=== PATIENT | female | born 1955 | race Caucasian/White ===

== ENCOUNTER → 2022-04-26 | Outpatient (REF) | payer SELFPAY ==
[2022-05-01 00:07] LABS: ANTINUCLEAR ANTIBODIES DIRECT Negative (Negative); CYCLIC CITRULLINATED PEPTIDE 6 units (0-19)
== END ==
LOC: M LAB REF 17:13
PROVIDERS: ATTEND Internal Medicine
DX: M25.50 Pain in unspecified joint (principal)

== ENCOUNTER → 2022-10-01 | Outpatient (CLI) | payer MEDICARE, OTHER | LOC: M WHC 08:53 | PROVIDERS: ATTEND Internal Medicine | DX: M81.0 Age-related osteoporosis without current pathological fracture (principal) ==

== ENCOUNTER → 2022-10-25 | Outpatient (CLI) | payer MEDICARE, OTHER | LOC: M PLAIMG 12:14 | PROVIDERS: ATTEND Physician Assistant | DX: M75.31 Calcific tendinitis of right shoulder (principal) ==

== ENCOUNTER → 2022-11-22 | Outpatient (CLI) | payer MEDICARE, OTHER | LOC: M PLAIMG 13:42 | PROVIDERS: ATTEND Physician Assistant | DX: M47.896 Other spondylosis, lumbar region (principal); M51.36 Other intervertebral disc degeneration, lumbar region ==

== ENCOUNTER → 2024-01-31 | Outpatient (REF) | payer MEDICARE, OTHER, MEDICAID ==
[2024-02-03 14:31] LABS: ANA SCREEN, IFA NEGATIVE (NEGATIVE)
[2024-02-04 01:47] LABS: CYCLIC CITRULLINATED PEPTIDE < 16 UNITS (<20)
[2024-02-06 22:52] LABS: LYME TOTAL ANTIBODY CIA <= 0.90 Index (<=0.90)
== END ==
LOC: M LAB REF 16:06
PROVIDERS: ATTEND Internal Medicine
DX: M25.50 Pain in unspecified joint (principal)

== ENCOUNTER 2024-03-05 14:07 | Outpatient (RCR) | payer MEDICARE, OTHER | END 2024-03-16 | LOC: M PT 14:07 | PROVIDERS: ATTEND Orthopaedic Surgery Hand Surgery | DX: M25.511 Pain in right shoulder (principal) ==

== ENCOUNTER 2024-03-18 09:54 | Outpatient (RCR) | payer MEDICARE, OTHER | END 2024-04-16 | LOC: M PT 09:54 | PROVIDERS: ATTEND Orthopaedic Surgery Hand Surgery | DX: M25.511 Pain in right shoulder (principal) ==

== ENCOUNTER → 2024-04-30 | Outpatient (REF) | payer MEDICARE, OTHER | LOC: M LAB REF 13:18 | PROVIDERS: ATTEND Internal Medicine | DX: R31.9 Hematuria, unspecified (principal) ==

== ENCOUNTER → 2024-05-05 | Outpatient (CLI) | payer MEDICARE, OTHER | LOC: M WHC 14:30 | PROVIDERS: ATTEND Internal Medicine | DX: D48.61 Neoplasm of uncertain behavior of right breast (principal); Z12.31 Encounter for screening mammogram for malignant neoplasm of breast | CPT/HCPCS: 76642; 77066; G0279 ==

== ENCOUNTER → 2024-05-19 | Outpatient (REF) | payer MEDICARE, OTHER | LOC: M LAB REF 11:55 | PROVIDERS: ATTEND Internal Medicine | DX: R31.9 Hematuria, unspecified (principal); R82.89 Other abnormal findings on cytological and histological examination of urine ==

== ENCOUNTER → 2024-12-22 | Outpatient (CLI) | payer MEDICARE, OTHER | LOC: M RAD 16:23 | PROVIDERS: ATTEND Nurse Practitioner Family | DX: R31.9 Hematuria, unspecified (principal); R10.9 Unspecified abdominal pain ==

== ENCOUNTER → 2024-12-31 | Outpatient (REF) | payer MEDICARE, OTHER | LOC: M LAB REF 17:07 | PROVIDERS: ATTEND Nurse Practitioner Family | DX: R31.9 Hematuria, unspecified (principal) ==

== ENCOUNTER → 2025-01-04 | Outpatient (REF) | payer MEDICARE, OTHER ==
[2025-01-04 17:47] LABS: APPEARANCE, URINE CLEAR (CLEAR); BACTERIA, URINE AUTO NEGATIVE (NEGATIVE); BILIRUBIN, URINE AUTO NEGATIVE (NEGATIVE); BLOOD, URINE BLOOD 2+ (NEGATIVE); GLUCOSE, URINE (UA) AUTO NEGATIVE (NEGATIVE); KETONE, URINE AUTO NEGATIVE (NEGATIVE); LEUKOCYTE ESTERASE, URINE AUTO NEGATIVE (NEGATIVE); MUCUS, URINE SMALL (NEGATIVE); NITRITE, URINE AUTO NEGATIVE (NEGATIVE); PROTEIN, URINE AUTO NEGATIVE (NEGATIVE); RBC, URINE AUTO 14 /HPF (0-3); SPECIFIC GRAVITY URINE AUTO 1.009 (1.002-1.035); SQUAMOUS EPITHELIAL CELL UR AU 0 /HPF (0-6); UROBILINOGEN, URINE AUTO 0.2 mg/dL (0.0-2.0); WBC, URINE AUTO 0 /HPF (0-3)
== END ==
LOC: M SMT 17:03
PROVIDERS: ATTEND Physician Assistant
DX: R31.9 Hematuria, unspecified (principal)

== ENCOUNTER → 2025-01-07 | Outpatient (REF) | payer MEDICARE, OTHER | LOC: M LAB REF 11:49 | PROVIDERS: ATTEND Nurse Practitioner Family | DX: R31.9 Hematuria, unspecified (principal) ==

== ENCOUNTER → 2025-01-14 | Outpatient (REF) | payer MEDICARE, OTHER | LOC: M LAB REF 17:25 | PROVIDERS: ATTEND Nurse Practitioner Family | DX: R31.9 Hematuria, unspecified (principal) ==

== ENCOUNTER → 2025-01-29 | Outpatient (CLI) | payer MEDICARE, OTHER | LOC: M WHC 12:35 | PROVIDERS: ATTEND Nurse Practitioner Family | DX: M85.89 Other specified disorders of bone density and structure, multiple sites (principal) ==

== ENCOUNTER → 2025-03-02 | Outpatient (CLI) | payer MEDICARE, OTHER | LOC: M RAD 10:31 | PROVIDERS: ATTEND Orthopaedic Surgery Hand Surgery | DX: M54.59 Other low back pain (principal) ==

== ENCOUNTER → 2025-03-02 | Outpatient (CLI) | payer MEDICARE, OTHER ==
[~2025-03-02] MED LIST: ISOVUE-370 76% 100 ML VIAL As Ordered ONE
== END ==
LOC: M RAD 10:35
PROVIDERS: ATTEND Internal Medicine Nephrology
DX: R31.9 Hematuria, unspecified (principal)
CPT/HCPCS: 74178; Q9967

== ENCOUNTER → 2025-03-05 | Outpatient (REF) | payer MEDICARE, OTHER ==
[2025-03-05 18:03] LABS: APPEARANCE, URINE CLEAR (CLEAR); BACTERIA, URINE AUTO 1+ (NEGATIVE); BILIRUBIN, URINE AUTO NEGATIVE (NEGATIVE); BLOOD, URINE BLOOD 2+ (NEGATIVE); GLUCOSE, URINE (UA) AUTO NEGATIVE (NEGATIVE); KETONE, URINE AUTO NEGATIVE (NEGATIVE); LEUKOCYTE ESTERASE, URINE AUTO NEGATIVE (NEGATIVE); NITRITE, URINE AUTO NEGATIVE (NEGATIVE); PROTEIN, URINE AUTO NEGATIVE (NEGATIVE); RBC, URINE AUTO 4 /HPF (0-3); SPECIFIC GRAVITY URINE AUTO 1.012 (1.002-1.035); SQUAMOUS EPITHELIAL CELL UR AU 1 /HPF (0-6); UROBILINOGEN, URINE AUTO 0.2 mg/dL (0.0-2.0); WBC, URINE AUTO 0 /HPF (0-3)
== END ==
LOC: M SMT 16:54
PROVIDERS: ATTEND Urology
DX: R31.0 Gross hematuria (principal)